=== PATIENT | female | born 1995 ===

== ENCOUNTER 2021-07-23 10:45 | Outpatient (RCR) | payer OTHER, SELFPAY ==
[2021-07-03 12:09] VITALS: BMI 24.7
--- NOTE | 2021-07-03 13:07 | PC.ADMIT ---
Patient is a 25 year old, single, legally blind female who was referred to [facility] as a step down to treatment by [facility] where patient was admitted d/t increased depression with suicidal thoughts and anxiety. Patient has a history of chronic depression and SI however patient reports an increase in the past few months secondary to work place stressors, break up with boyfriend, and poor supports as her family lives in [place]. Patient is currently taking a leave of absence from work d/t symptoms. Per records patient has a hx of SA last attempt via overdose in 2012 when her BF at the time broke up with her. Patient reports issues with obtaining her medications from her pharmacy. Stated pharmacy did not fill the Quetiapine 125 mg at and only filled the 25 mg daily #14 tabs, confirmed this with the pharmacy who stated they could not fill the prescription as written. Also Vortioxetine 20 mg daily was not filled as it needs a prior auth which patient stated the hospital completed and she has the paperwork (which she will send to me stating it was approved). Pharmacy stated Vortioxetine 5 mg waiting for p/u since May. Mimi Rincon METER READER aware. Patient has a therapist assigned to her at [facility] in [place] and she is awaiting a prescriber appointment at [facility]. Patient is alert and oriented x4. Calm and cooperative. Presents with depressed mood and affect. Some passive SI however denied plan or intent. Patient gave verbal permission to email her a copy of her safety plan. Asked patient who could she contact if feeling unsafe and she stated she would go back to the hospital where she was previously admitted. Patient stated she called an UBER to come pick her up and take her to the hospital. Patient unable to take medications as prescribed as she had issues getting the medications from the pharmacy. will work with patient in obtaining prescription medications. Medication Education provided.
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
--- NOTE | 2021-07-04 12:50 | PC.NURSE ---
Patient sent me a copy via email of PA from [facility] stating they approved Trintellex 20 mg. Soke to Kateryna the pharmacist at patients pharmacy [facility] and faxed her the information. Kateryna called me back and was unclear why it was not going through. Stated she could not process it loos like the PA was cancelled or No PA from cover my meds. Spoke to Elizabeth from [facility] and she was able to see that the PA was approved and stated she will correct what needs to be corrected so it will go through, in addition to calling [facility] to let them know when to process it. Reference # [id number]. Elizabeth's number [phone]. Sp[opal to patient and updated her on the above information. Patient is aware of the need to take 1/2 tab for the first 3 days then 1 tab daily per Cynthia Puente NP instructions.
--- NOTE | 2021-07-05 12:58 | PC.NURSE ---
Patient stated she had an important appointment today at 2:00. She emailed me to let us know that the appointment changed from 2:00 to 1:00 thus unable to make the last group.
--- NOTE | 2021-07-05 17:06 | PC.NURSE ---
Case opened in treatment team.
--- NOTE | 2021-07-09 09:24 | PC.NURSE ---
Rosina will not be attending the program today as she has a therapy appointment and does not want to get billed by her insurance co.
--- NOTE | 2021-07-10 16:06 | HO.PHPPROGNO ---
Subjective Subjective Date of Service: 07/10/21 Reason For Visit: Depression, SI Guardianship: No Medical Problems Affecting Mental Status: No Interim History: Rosina reports she is feelig Increased depressive symptoms today. She states that she would rated a 9 on a scale 1-10, with 10 the worst. She states that she believes it is because she went home to [place] yesterday, and that it was triggering . She states that she also applied for a new job recently, but did not get it, and that that made her feel defeated in someway. When asked if she felt safe regarding any type of suicidal ideation, she reported yeah, I feel safe . she stated that she always has some underlying thoughts of suicidal ideation, but has no intent or plan. Reports some tingling in lip, not sure if this is related to vitamin D. REports that she believes seroquel is causing increased urination. She reports that is is not bothersome, and plans to continue seroquel, as it appears to be helping with depressive and anxiety symptoms. She has short-term disability paperwork that needs to be completed. Medication Compliance: Yes Side effects from medications: Yes Attending Groups: Yes Review of Systems Acute medical concerns: No Medical Review of Systems: unchanged Review of Systems Constitutional: Reports no additional constitutional complaints Eyes: Reports no additional eye complaints Reports system reviewed and no additional complaints, except as documented Musculoskeletal: Reports tingling (describes a tingling in lips, believe r/t vitamin d) Reports tingling (describes a tingling in lips, believe r/t vitamin d) Psychiatric: Reports anxiety, Reports depression and Reports suicidal ideation (passive, no plan/intent) Endocrine: Reports no additional endocrine complaints Hematologic/Lymphatic: Reports no additional hematologic/lymphatic complaints Allergic/Immunologic: Reports no additional allergic/immunologic complaints Mental Status Exam Mental Status Exam Narrative: well-developed, well-nourished female, in NAD. Appropriately groomed, appropriately dressed. Sitting upright, fully attentive during encounter. No involuntary movements noted, motor activity calm. Manner in behavior, cooperative. Fluent speech, unimpaired. Normal rate and volume. Mood described as depressed. Affect congruent. Thought process and associations goal directed. Thought content normal, future oriented. No evidence of delusional thoughts or hallucinations observed or reported. Patient does report almost constant passive SI, no plan or intent. No HI. Appears to be reliable historian. Judgment and insight continue fair. Ambulation not observed. Diagnostics Vital Signs (24Hr): Body Mass Index 24.7 Assessment & Plan Assessment & Plan (1) Generalized anxiety disorder: Status: Acute Code(s): F41.1 - Generalized anxiety disorder Assessment and Plan: Patient reports positive affect with Seroquel. Plans to continue medication. (2) Major depressive disorder, recurrent severe without psychotic features: Status: Acute Code(s): F33.2 - Major depressive disorder, recurrent severe without psychotic features Assessment and Plan: Patient reports increased depression symptoms today. Reports this is due to seen family at home yesterday [place], which she found triggering. She also reports she had applied for a job recently, and received rejection letter. Overall she feels medication and groups are helping to learn healthy coping skills regarding depressive and anxiety symptoms. She currently is taking medication vortioxetine 20mg, with no side effects. she reports she is happy to be taking this medication, as she feels she can tolerate it regarding side effects, and that it appears to be helping somewhat manage symptoms. Denies any active SI, no intent or plan. Does endorse an underlying passive SI, which reports is frequently present. She states that she has no intention to act on any type of thoughts. No safety concerns at this time. Assessment and Plan: 1. Continue with current medications. 2. Suggested labs, including vitamin-D level. suggested EKG as well, due to taking atypical antipsychotic. Patient reports she would like to follow-up with her own PCP regarding any lab work or EKG. 3. Follow-up as per protocol. 4. Will complete STD paperwork and send to insurance co. Reason for contiued partial hosp. stay Substantial Risk for: inability to function and med/psych decompensation Certification I certify that partial hospital treatment is medically necessary due to the symptoms and problems resulting from the patient's mental illness and the failure to treat the patient at the partial hospital level of care would likely result in the patient requiring inpatient psychiatric care which could not be prevented at a less intensive level of care. Greater than 50% of the session was spent on counseling and/or coordination of care Discharge Plan Discharge Attending provider: Reid Plaza Primary Care Provider: Jess Parker Medications: New quetiapine [Seroquel] 100 mg tablet 100 mg PO BEDTIME Qty: 30 RF: 0 quetiapine [Seroquel] 25 mg tablet 25 mg PO BID Qty: 60 RF: 0 Discontinued quetiapine 25 mg Tablet 25 mg PO DAILY RF: 0 quetiapine 25 mg Tablet 125 mg PO BEDTIME RF: 0 No Action melatonin 3 mg Tablet 3 mg PO BEDTIME RF: 0 cholecalciferol (vitamin D3) [Vitamin D3] 25 mcg (1,000 unit) Capsule 25 mcg PO DAILY RF: 0 vortioxetine 20 mg Tablet 20 mg PO DAILY RF: 0 Referrals: Jess Parker MD [Primary Care Provider] - 1 Week Telehealth Telehealth Location of provider rendering services: practice address Location of patient: address on file Patient Identification confirmed using: Name, : Yes Telehealth method: video Patient verbally consented to treatment: Yes Patient verbally consented to billing insurance company: Yes Patient informed of any privacy concerns related to visit: Yes Time spent with patient (mins): 15
--- NOTE | 2021-07-12 08:29 | PC.NURSE ---
Spoke to patient this morning who stated she was not feeling well c/o sore throat and headache. Plans on returning on next scheduled day. Informed patient that her STD paperwork was filled out and emailed to her via secure email. Let her know that her signature if needed on the form. Patient to send form to STD claims after she signs paperwork.
--- NOTE | 2021-07-12 08:35 | PC.NURSE ---
Franky emailed me stating she will not be in the program today. Mery her clinician is aware.
--- NOTE | 2021-07-17 11:09 | HO.PHPPROGNO ---
Subjective Subjective Date of Service: 07/17/21 Reason For Visit: Depression, SI Guardianship: No Medical Problems Affecting Mental Status: No Interim History: Rosina reports i'm still feeling pretty depressed . Describes still feeling significant depressive symptoms, including excessive sleep, feeling tired. Reports she continues to have passive SI, with no plan/intent at this time. States the SI is always there . Medication Compliance: Yes Side effects from medications: No Attending Groups: Yes Review of Systems Acute medical concerns: No Medical Review of Systems: unchanged Review of Systems Review of Systems Yes all other systems are reviewed and are negative Mental Status Exam Mental Status Exam Narrative: Well developed, well nourished female, in no apparent distress. Patient Appearance: Well Grooomed, Fatigued and Appropriate Patient Orientation: Person, Place, Time and Situation Level of Consciousness: Awake, Appropriate and Alert Patient Behavior: Appropriate and Cooperative Mood Description: Calm, Appropriate and Depressed Affect Description: Appropriate, Depressed, Flat and Sad Patient Cognition Impaired: No Ability to Follow Directions: Excellent Speech Pattern: Clear, Appropriate, Coherent and Soft-Spoken Memory Description: Intact Hallucinations: None Delusions: Not Present Thought Process: Intact, Goal Oriented and Linear Thought Content: positive for Intact, positive for Goal Oriented, positive for Linear and positive for Suicidal Ideation (passive, with no plan/intent) Depressive Symptoms: Sleeping More Than Usual, Hopelessness, Feelings of Guilt, Increased Fatigue, Thoughts of /Suicide and Loss of Energy Judgement: Fair Diagnostics Vital Signs (24Hr): Body Mass Index 24.7 Assessment & Plan Assessment & Plan (1) Major depressive disorder, recurrent severe without psychotic features: Status: Acute Code(s): F33.2 - Major depressive disorder, recurrent severe without psychotic features Assessment and Plan: Rosina reports she is still feeling significantly depressed, continues to have passive SI. She has been taking the Trintellix for approximately 5 weeks, as she had missed a weeks dosing after hospital stay. Discussed the medication, and length of time before it may be fully helpful. She has agreed that she would like to continue with trial of Trintellix rather than try to make any medication adjustments at this time. She did state that she has no intention or plan of self-harm, no safety concern at this time. (2) Generalized anxiety disorder: Status: Acute Code(s): F41.1 - Generalized anxiety disorder Assessment and Plan: Rosina continues with Seroquel 100 at bedtime and 25 mg in the a.m., reports she feels it is helping with anxiety, and is also helping with mood stabilization regarding depression. She states she is unsure if the excessive sleeping is due to her depression or could possibly be due to Seroquel. She reports feeling overly tired and is sleeping a lot. Discussed lowering bedtime dose, or taking 1 hour earlier. She stated she would like to try to take it a little earlier. Also discussed the 25 mg dose in the a.m.. She states that she likes taking this in am, as she is finding it effective with anxiety. Discussed possibility of taking 1/2 tablet in a.m. upon awakening, and other half tablet at noon time, in order to help with a.m. sedation. She stated she would consider it. Assessment and Plan: 1. Continue trintellix at 20mg daily. 2. Consider taking seroquel one hour earlier at night, and splitting am dose of 25mg in half, and take 12.5 (am and noon) in order to help reduce sedation. 3. No refills needed at this time. 4. Follow-up as per protocol. Patient educated on: diagnosis, medication risk/benefits and therapeutic strategies Informed Consent: understands Reason for contiued partial hosp. stay Substantial Risk for: harm to self, inability to function and med/psych decompensation Certification I certify that partial hospital treatment is medically necessary due to the symptoms and problems resulting from the patient's mental illness and the failure to treat the patient at the partial hospital level of care would likely result in the patient requiring inpatient psychiatric care which could not be prevented at a less intensive level of care. Greater than 50% of the session was spent on counseling and/or coordination of care Discharge Plan Discharge Attending provider: Reid Plaza Primary Care Provider: Jess Parker Medications: New quetiapine [Seroquel] 100 mg tablet 100 mg PO BEDTIME Qty: 30 RF: 0 quetiapine [Seroquel] 25 mg tablet 25 mg PO BID Qty: 60 RF: 0 Discontinued quetiapine 25 mg Tablet 25 mg PO DAILY RF: 0 quetiapine 25 mg Tablet 125 mg PO BEDTIME RF: 0 No Action melatonin 3 mg Tablet 3 mg PO BEDTIME RF: 0 cholecalciferol (vitamin D3) [Vitamin D3] 25 mcg (1,000 unit) Capsule 25 mcg PO DAILY RF: 0 vortioxetine 20 mg Tablet 20 mg PO DAILY RF: 0 Referrals: Jess Parker MD [Primary Care Provider] - 1 Week Telehealth Telehealth Location of provider rendering services: practice address Location of patient: address on file Patient Identification confirmed using: Name, : Yes Telehealth method: video Patient verbally consented to treatment: Yes Patient verbally consented to billing insurance company: Yes Patient informed of any privacy concerns related to visit: Yes Time spent with patient (mins): 15
--- NOTE | 2021-07-18 09:28 | PC.NURSE ---
Spoke to patient this morning. She was initially having difficulty opening up the secure email I sent her with her STD claim however was able to open it yesterday with help from a friend. Patient stated she signed the paperwork and sent it to [employer].
--- NOTE | 2021-07-23 13:58 | PC.NURSE ---
Patient is scheduled to discharge from the program today. Stated she feels good about discharge. Denied SI. Reviewed patient medications with patient, patient taking medications as prescribed. Patient wanted information emailed to her regarding [facility] financial assistance program as she wanted information about [place]. Information emailed to patient.
--- NOTE | 2021-07-23 17:35 | P.PNPSP_ITS ---
Subjective Subjective Date of Service: 07/23/21 Reason For Visit: Depression, SI Interim History: Patient seen and discussed with team. Patient evaluated this morning and upon interview she reports splitting the seroquel dose didnt do anything, went back to taking it once in the morning, says it is overall still helping with anxiety. Reports she has pretty bad depression and that this current episode of depression is one of the worst episodes. Says her sleep really fluctuates, recently wants to sleep all the time, tired in the day, has been waking up several times a night. Says she has been on trintellix for 6 weeks, does not want to trial any new medications and wants to continue trial of trintellix for a few more weeks. Has tried abilify as an adjunct med for depression and says it helped with mood stability, may try this again but will talk with her OP prescriber (sees PCP but will get referral from [facility]). Says she currently feels safe. Medication Compliance: Yes Side effects from medications: No Attending Groups: Yes Review of Systems Acute medical concerns: No Medical Review of Systems: unchanged Mental Status Exam Mental Status Exam Narrative: Well developed, well nourished female, in no apparent distress. Patient Appearance:?Well Grooomed, Fatigued and Appropriate Patient Orientation:?Person, Place, Time and Situation Level of Consciousness:?Awake, Appropriate and Alert Patient Behavior:?Appropriate and Cooperative Mood Description:?Calm, Appropriate and Depressed Affect Description:?Appropriate, Depressed, Flat and Sad Patient Cognition Impaired:?No Ability to Follow Directions:?Excellent Speech Pattern:?Clear, Appropriate, Coherent and Soft-Spoken Memory Description:?Intact Hallucinations:?None Delusions:?Not Present Thought Process:?Intact, Goal Oriented and Linear Thought Content:?positive for Intact, positive for Goal Oriented, positive for Linear and positive for Suicidal Ideation (passive, with no plan/intent) Depressive Symptoms:?Sleeping More Than Usual, Hopelessness, Feelings of Guilt, Increased Fatigue, Thoughts of /Suicide and Loss of Energy Judgement:?Fair Diagnostics Vital Signs (24Hr): Body Mass Index 24.7 Assessment & Plan Assessment & Plan (1) Generalized anxiety disorder: Status: Acute Code(s): F41.1 - Generalized anxiety disorder Assessment and Plan: Has continued with Seroquel 100 at bedtime and 25 mg in the a.m., did not notice benefit from splitting the morning dose to QAM and Qnoon. Continues to report restless sleep and daytime sedation but does not want med adjustments at this time. (2) Major depressive disorder, recurrent severe without psychotic features: Status: Acute Code(s): F33.2 - Major depressive disorder, recurrent severe without psychotic features Assessment and Plan: On Trintellix x 6 weeks s/p IPLOC, does not want med changes or adjustments at this time. Denies SI/SIB upon inquiry today. No safety concern at this time. Assessment and Plan: 1. Continue trintellix at 20mg daily for depression, anxiety 2. Continue seroquel 100 mg QHS and 25 mg QAM for anxiety. 3. No refills needed at this time. 4. Follow-up as per protocol. Certification I certify that partial hospital treatment is medically necessary due to the symptoms and problems resulting from the patient's mental illness and the failure to treat the patient at the partial hospital level of care would likely result in the patient requiring inpatient psychiatric care which could not be prevented at a less intensive level of care. I spent minutes with the patient and/or on the patient floor today, greater than?50% of which was spent counseling/coordinating care. Discharge Plan Discharge Attending provider: [facility] Plaza Primary Care Provider: Jess Parker Additional Instructions: Providers at [facility] and an appointment with psychiatrist . The client was given the umber for Mandy Go APRN as a back up plan. Medications: New quetiapine [Seroquel] 100 mg tablet 100 mg PO BEDTIME Qty: 30 RF: 0 quetiapine [Seroquel] 25 mg tablet 25 mg PO BID Qty: 60 RF: 0 Discontinued quetiapine 25 mg Tablet 25 mg PO DAILY RF: 0 quetiapine 25 mg Tablet 125 mg PO BEDTIME RF: 0 No Action melatonin 3 mg Tablet 3 mg PO BEDTIME RF: 0 cholecalciferol (vitamin D3) [Vitamin D3] 25 mcg (1,000 unit) Capsule 25 mcg PO DAILY RF: 0 vortioxetine 20 mg Tablet 20 mg PO DAILY RF: 0 Referrals: Jess Parker MD [Primary Care Provider] - 1 Week Stand Alone Forms: Patient Portal Discharge page
--- NOTE | 2021-07-24 08:42 | PC.NURSE ---
I left a phone message for the clients therapist Cayla Hernández re clients dc from program and ongoing depression.
== END 2021-07-24 07:14 | disposition home or self-care (01) ==
LOC: HO.PHPA 10:45
PROVIDERS: PCP Internal Medicine; Visit Provider Psychiatry & Neurology Psychiatry
DX: F33.2 Major depressive disorder, recurrent severe without psychotic features (principal); F41.1 Generalized anxiety disorder; H54.8 Legal blindness, as defined in USA; Z79.899 Other long term (current) drug therapy; Z91.5 Personal history of self-harm
CPT/HCPCS: 90853